=== PATIENT | female | born 1960 | race African-American/Black ===

== ENCOUNTER 2021-04-27 13:26 | Outpatient (CLI) | payer BC, SELFPAY ==
--- NOTE | ~2021-04-27 | NM_ITS ---
EXAMINATION: NM thyroid scan w uptake DATE: 04/28/2021 14:28 INDICATION: Thyrotoxicosis, unspecified without thyrotoxic crisis. COMPARISON: Ultrasound 03/18/2017 TECHNIQUE: 0.348 mCi I-123 was administered orally. Scintigraphic images of the thyroid gland were o btained at 24 hours. Thyroid uptake was calculated by the technologist. FINDINGS: The thyroid uptake is 23% (normal 10-30%), with the right lobe measuring 12% uptake and the left 11%. There is no focal area of decreased or increased activity to suggest hypofunctioning or hyperfunctio ledy nodule. IMPRESSION: 1. Normal thyroid scintigraphy and 24-hour iodine uptake. Reviewed, dictated and finalized at location A.
== END 2021-04-27 13:27 | disposition home or self-care (01) ==
LOC: ANHIMG 13:28
PROVIDERS: PCP Family Medicine; Visit Provider Internal Medicine Endocrinology, Diabetes & Metabolism
DX: E05.90 Thyrotoxicosis, unspecified without thyrotoxic crisis or storm (principal); E04.2 Nontoxic multinodular goiter
CPT/HCPCS: 78014; A9516

== ENCOUNTER 2022-10-02 13:18 | Outpatient (CLI) | payer BC, SELFPAY ==
--- NOTE | ~2022-10-02 | NM_ITS ---
EXAMINATION: NM thyroid scan w uptake DATE: 10/04/2022 09:19 INDICATION: Thyrotoxicosis. Assess for hot nodule or Graves' disease. COMPARISON: 04/28/2021 TECHNIQUE: 366 microcuries I-123 was administered orally in capsule form. Scintigraphic images of th e thyroid gland were obtained at 24 hours. Thyroid uptake was calculated by the technologist. FINDINGS: The thyroid uptake is 44.8% (normal 10-30%), with the right lobe measuring 23.9% uptake and the left 21.7%. There is no focal area of decreased or increased activity to suggest hypofunctioning or hyperf unctioning nodule. IMPRESSION: 1. Normal thyroid scintigraphy with significantly elevated 24-hour iodine uptake which would be cons istent with Graves' disease. Reviewed, dictated and finalized at location A. R FEEDER IMPRESSION: 1. Normal thyroid scintigraphy with significantly elevated 24-hour iodine upta ke which would be consistent with Graves' disease.
== END 2022-10-02 13:19 | disposition home or self-care (01) ==
PROVIDERS: Visit Provider Internal Medicine Endocrinology, Diabetes & Metabolism
DX: E04.2 Nontoxic multinodular goiter (principal); E05.90 Thyrotoxicosis, unspecified without thyrotoxic crisis or storm
CPT/HCPCS: 78014; A9516